=== PATIENT | female | born 1985 | race Caucasian/White ===

== ENCOUNTER → 2016-12-04 | Outpatient (CLI) | payer OTHER ==
[~2016-12-04] MED LIST: COLA100C5 PO; DIBU10OI TOP; IBUP-1114 PO; PRENTAB9 PO; TYLE325T5 PO
--- NOTE | 2016-12-04 15:59 | REP ---
ULTRASOUND RIGHT BREAST: Real-time sonographic evaluation of the right breast is performed. Patient is breast feeding and has had a painful palpable abnormality for 5 weeks in the region of 7-9 o'clock. History of maternal grandmother with breast cancer. Real-time sonographic evaluation of the right breast performed between 7 and 9 o'clock demonstrates fibroglandular tissue with scattered mildly dilated ducts. No discrete cystic or solid mass is seen. There is no fluid collection. IMPRESSION: ACR 2 benign. Mildly dilated ducts in the region of the report palpable abnormality on the right breast. No mass or fluid collection. Signed by Theo Ramirez MD 12/04/2016 05:10 P
== END ==
LOC: M RAD 14:17
PROVIDERS: ATTEND Internal Medicine
DX: N60.41 Mammary duct ectasia of right breast (principal)